=== PATIENT | male | born 1945 | race Caucasian/White ===

== ENCOUNTER 2021-02-07 22:16 | Emergency (ER) | payer MEDICARE ==
[~2021-02-07] VITALS: Ht 177.8 cm; Wt 95.5 kg
[2021-02-07 22:16] VITALS: BP 140/90
--- NOTE | 2021-02-07 22:31 | PHYS DOC ---
Adult General Chief Complaint Chief Complaint: POST-OP PROBLEM HPI HPI Patient is a 75-year-old male presenting for postop problems. 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 Reports approximately an hour prior to arrival while at rest there was subtle bleeding noted through the stitches on left anterior chest. Daughter placed a nonadhesive pad on which soaked through in the following hour concerning them enough to present to our ER for evaluation. On evaluation, there is no bleeding, patient has no complaints. They are requesting dressing change Review of Systems Review of Systems Fourteen body systems of review of systems have been reviewed. See HPI for pertinent positives and negative responses, other saba all other systems are negative, non-pertinent or non-contributory Physical Exam Physical Exam Constitutional: Well developed, well nourished, no acute distress, non-toxic appearance. HENT: Normocephalic, left temporal region with well-appearing postsurgical dressing from recent shop mechanic skin excision from skin cancer, bilateral external ears normal, oropharynx moist, no oral exudates, nose normal. Eyes: PERRLA, EOMI, conjunctiva normal, no discharge. Neck: Normal range of motion, no tenderness, supple, no stridor. Cardiovascular: Heart rate regular, sinus rhythm, no murmurs rubs or gallops, left anterior chest with well-appearing approximately 3 inch horizontal incision that is well covered and sutured together with simple interrupted sutures, there is mild ecchymosis and bruising around area with no active bleeding. Lungs & Thorax: Bilateral breath sounds clear to auscultation Abdomen: Bowel sounds normal, soft, no tenderness, no masses, no pulsatile masses. Nonsurgical abdomen, no peritoneal signs Skin: Warm, dry, no erythema, no rash. Back: No tenderness, no CVA tenderness. Extremities: No tenderness, no cyanosis, no clubbing, ROM intact, no edema. Neurologic: Alert and oriented X 3, grossly normal motor & sensory function, no focal deficits noted. Psychologic: Affect normal, judgement normal, mood normal. Current Patient Data Vital Signs Vital Signs Date Time Temp Pulse Resp B/P (MAP) Pulse Ox O2 Delivery O2 Flow Rate FiO2 02/07/21 22:16 98.3 77 20 140/90 (107) 96 Room Air Vital Signs Date Time Temp Pulse Resp B/P (MAP) Pulse Ox O2 Delivery O2 Flow Rate FiO2 02/07/21 22:16 98.3 77 20 140/90 (107) 96 Room Air EKG EKG [] Radiology/Procedures Radiology/Procedures [] Heart Score C/O Chest Pain: No Risk Factors: Risk Factors: DM, Current or recent (<one month) smoker, HTN, HLP, family history of CAD, obesity. Risk Scores: Risk Factors: DM, Current or recent (<one month) smoker, HTN, HLP, family history of CAD, obesity. Course & Med Decision Making Course & Med Decision Making ABCs unremarkable History and physical examination nonconcerning for any emergent or surgical issues. There is no bleeding exhibited on evaluation of left anterior chest from region surgical site that is well-appearing and sutured shut Joint decision made with patient and daughter to reapply compression bandage to left anterior chest and for close follow-up with shop mechanic in outpatient setting in upcoming 72 hours. I disclose there is no indication for further suturing and/or opening up the wound for surgical evaluation at this time Strict return precautions were discussed with understanding verbalized by patient and family member at bedside. All questions and concerns addressed prior to departure Dragon Disclaimer Dragon Disclaimer This electronic medical record was generated, in whole or in part, using a voice recognition dictation system. Departure Departure: Impression: Primary Impression: Post-op bleeding Disposition: 01 HOME / SELF CARE / HOMELESS Condition: STABLE Referrals: FANTASMA SOARES MD (PCP) Additional Instructions: As discussed prior to ER departure, your vitals, HPI and physical exam were nonconcerning for any emergent or surgical issues. There is no indication for further diagnostic work-up and/or intervention while in ER setting as your sutures were not bleeding and unwell appearing positions. Your suture wound was covered with appropriate dressing and so, I recommend you contact your shop mechanic programmer operator numerical control tomorrow to review ER visit today and needs for next step in care. Bleeding reoccurs please contact your shop mechanic first as sometimes they have outside/after hours times where this can be addressed in clinic; otherwise, please do not hesitate to come back here or other closest medical facility for evaluation and treatment as indicated. It was a pleasure to take care of you and I wish you the best going forward RASHEEDA JOHNS DO Feb 07, 2021 22:31
== END 2021-02-07 23:54 | disposition home or self-care (01) ==
LOC: ER 22:16
DX: L76.22 Postprocedural hemorrhage of skin and subcutaneous tissue following other procedure (principal)
CPT/HCPCS: 99281